=== PATIENT | male | born 1955 | race Caucasian/White ===

== ENCOUNTER 2020-07-13 10:20 | Emergency (ER) | payer OTHER ==
[~2020-07-13] VITALS: Ht 177.8 cm; Wt 102.1 kg
[~2020-07-13 10:20] MED LIST: AZOR 10-40 MG1 EACH PO; BACTRIM DS TAB1 EACH PO; DEPO-TESTO100 MG/1 M IM; DEPO-TESTO200 MG/1 M IM; FLEXERIL PO; FLOMAX0.4 MG PO; MEDROLDOSEPACK PO; MELATONIN1 MG PO; MOBIC15 MG PO; NALTREXONE HCL50 MG PO; NORCO 5-325 TA1 EACH PO; ROBAXIN500 MG PO; SINGULAIR 10 MG10 M1 PO; TESSALON PERLE100 MG PO; VENTOLIN HFA 1818 GM INH; ZOLOFT 50 MG TA50 M1 PO
[2020-07-13] MEDS ORDERED: NEXIUM 40 MG CA40 M1 PO (10:37)
[2020-07-13] MEDS ORDERED: VALSARTAN80 MG PO (10:37)
[2020-07-13 10:45] VITALS: BP 169/98
== END 2020-07-13 10:45 | disposition home or self-care (01) ==
LOC: M.ERS 10:20
DX: H11.32 Conjunctival hemorrhage, left eye (principal); I10 Essential (primary) hypertension; Z88.0 Allergy status to penicillin